=== PATIENT | male | born 1950 | race Caucasian/White ===

== ENCOUNTER 2017-01-02 09:56 | Emergency (ER) | payer MEDICARE ==
[~2017-01-02] VITALS: Ht 190.5 cm; Wt 128.4 kg
[2017-01-02 10:38] VITALS: BP 111/59
== END 2017-01-02 11:31 | disposition home or self-care (01) ==
LOC: ER 10:07
DX: M17.12 Unilateral primary osteoarthritis, left knee (principal); M11.262 Other chondrocalcinosis, left knee; M25.462 Effusion, left knee; E11.9 Type 2 diabetes mellitus without complications
CPT/HCPCS: 73560